=== PATIENT | female | born 1955 | race Two or more races ===

== ENCOUNTER 2023-12-05 15:40 | Inpatient (IN) | payer OTHER ==
[~2023-12-05] VITALS: Ht 160 cm; Wt 56.7 kg
[2023-12-05] MEDS ORDERED: AMBIEN5 MG PO (15:47)
[2023-12-05] MEDS ORDERED: AVAPRO75 MG PO (15:47)
[2023-12-05] MEDS ORDERED: SIMVASTATIN5 MG (15:47)
--- NOTE | 2023-12-05 15:49 | NUR ---
PTE ALERTA Y ORIENTADA X3, REFIERE PADECER DE "ADHERENCIAS" Y HACE 2 ANOS FUE OPERADA DEBIDO A ESO. EN EL RODOLFO DE HOY REFIERE DOLOR ABDOMINAL Y QUE SE ESTA INTENSTIFICANDO AL LADO IZQ. REFIERE QUE ALVES ZEB. ES RICCO TENORIO Y QUE LE DIJO QUE CUANDO EL DOLOR FUERA ALAN ACUDIERA A ER. SE SANA SV Y SE UBICA
[2023-12-05] MEDS ORDERED: HYOSCYAMINE SULFATE 0.125 MG TAB.SUBL PO ONE (16:30)
[2023-12-05] MEDS ORDERED: 0.9 % SODIUM CHLORIDE 1,000 ML IV SCH ×2 (16:30→22:00)
[2023-12-05 17:03] LABS: HEMATOCRIT 42.9 % (36.0-45.00); HEMOGLOBIN 14.3 g/dL (12.0-15.00); MEAN CORPUSCULAR HEMOGLOBIN 31.3 pg (27.00-32.0); MEAN CORPUSCULAR HGB CONC 33.3 g/dl (32.0-36.0); PLATELET COUNT 177 K/uL (150-450); RED BLOOD COUNT 4.56 M/uL (4.00-6.00); RED CELL DISTRIBUTION WIDTH 13.7 % (11.5-14.5)
--- NOTE | 2023-12-05 17:06 | NUR ---
SE ORIENTA PTE SOBRE XT A SEGUIR, LA MISMA REFIERE ENTENDER. SE NERIS MUESTRA DE LAB, SE CANALIZA Y SE ADMINISTRA MED RAJAN ORDEN MEDICA
[2023-12-05 17:28] LABS: ALBUMIN 4.5 gm/dL (3.4-5.0); BILIRUBIN TOTAL 1.72 mg/dL (0.3-1.2); CALCIUM 10.7 mg/dL (8.5-10.1); GFR 55.3; GLOBULINA 3.9 G/DL (2.4-3.5); POTASSIUM 3.6 mEq/L (3.5-5.1); TOTAL PROTEIN 8.4 gm/dL (6.4-8.2)
[2023-12-05 17:42] LABS: URINE APPEARANCE Clear; URINE BILIRRUBIN Negative (NEGATIVE); URINE BLOOD Negative; URINE COLOR Dark Yellow; URINE GLUCOSE Negative (NEGATIVE); URINE LEUKOCYTE Negative; URINE NITRATE Negative; URINE PROTEIN Trace (NEGATIVE)
[2023-12-05 17:46] LABS: URINE BACTERIA 76.8 uL (0.0-1933); URINE EPITHELIAL CELLS 8.1 uL (0.0-38.8); URINE RBC 15.5 uL (0.0-20.8); URINE WBC 12.9 uL (0.0-23.2)
[2023-12-05 17:57] LABS: URINE KETONE 40 (NEGATIVE)
[2023-12-05] MEDS ORDERED: ONDANSETRON HCL 4 MG in 0.9 % SODIUM CHLORIDE 50 ML IV PRN (22:00)
[2023-12-05] MEDS ORDERED: ACETAMINOPHEN 500 MG GEL..CAP PO PRN (22:00)
[2023-12-05] MEDS ORDERED: MEPERIDINE HCL/PF 25 MG/ML VIAL IM PRN (22:15)
[2023-12-05] MEDS ORDERED: KETOROLAC TROMETHAMINE 15 MG VIAL IU ONE (22:15)
[2023-12-05 23:03] VITALS: BP 145/74; O2SAT 100
[2023-12-05 23:59] LABS: PARTIAL THROMBOPLASTIN TIME 27.8 SECONDS (22.0-34.0); PROTHROMBIN TIME 10.9 SECONDS (9.0-11.5)
[2023-12-06] LABS: MAGNESIUM 2.3 mg/dL (1.8-2.4)
[2023-12-06] MEDS ORDERED: PIPERACILLIN/TAZOBACTAM SODIUM 3.375 GM in DEXTROSE 5 % IN WATER 100 ML IV SCH
[2023-12-06 00:20] LABS: C-REACTIVE PROTEIN 0.69 MG/DL (0.00-0.29)
[2023-12-06 03:50] VITALS: BP 142/68; O2SAT 98
[2023-12-06 08:00] VITALS: BP 146/63; O2SAT 100
[2023-12-06] MEDS ORDERED: IRBESARTAN 75 MG TABLET PO SCH (09:00)
[2023-12-06] MEDS ORDERED: FAMOTIDINE/PF 20 MG in 0.9 % SODIUM CHLORIDE 8 ML IV PUSH SCH (09:00)
[2023-12-06] MEDS ORDERED: ENOXAPARIN SODIUM 40 MG/0.4 ML SYRINGE SUBCUTANEO SCH (09:00)
[2023-12-06 16:48] VITALS: BP 132/63; O2SAT 97
[2023-12-06] MEDS ORDERED: ZOLPIDEM TARTRATE 5 MG TABLET PO SCH (21:00)
[2023-12-07] VITALS: BP 108/57; O2SAT 98
[2023-12-07 09:00] VITALS: BP 121/59; O2SAT 99
[2023-12-07 09:27] LABS: HEMATOCRIT 36.6 % (36.0-45.00); HEMOGLOBIN 12.4 g/dL (12.0-15.00); MEAN CELL VOLUME 95.2 fL (80.00-100.00); MEAN CORPUSCULAR HEMOGLOBIN 32.2 pg (27.00-32.0); MEAN CORPUSCULAR HGB CONC 33.8 g/dl (32.0-36.0); RED BLOOD COUNT 3.85 M/uL (4.00-6.00); RED CELL DISTRIBUTION WIDTH 13.4 % (11.5-14.5)
[2023-12-07 09:47] LABS: ALBUMIN 3.2 gm/dL (3.4-5.0); BILIRUBIN TOTAL 2.84 mg/dL (0.3-1.2); CALCIUM 8.1 mg/dL (8.5-10.1); CREATININE SERUM 0.68 mg/dL (0.55-1.02); GFR 86.3; GLOBULINA 2.7 G/DL (2.4-3.5); POTASSIUM 4.15 mEq/L (3.5-5.1); TOTAL PROTEIN 5.9 gm/dL (6.4-8.2)
[2023-12-07 09:58] LABS: PLATELET COUNT 112 K/uL (150-450)
[2023-12-07 17:01] VITALS: BP 132/66; O2SAT 96
[2023-12-08 01:02] VITALS: BP 118/60; O2SAT 96
[2023-12-08 09:32] VITALS: BP 133/69; O2SAT 99
[2023-12-08 15:30] VITALS: BP 134/66; O2SAT 95
[2023-12-08] MEDS ORDERED: PHENOL 177 ML BOTTLE MM ONE (18:00)
[2023-12-09] VITALS: BP 132/60; O2SAT 98
[2023-12-09 10:07] VITALS: BP 155/67; O2SAT 100
== END 2023-12-09 11:39 | disposition home or self-care (01) | DRG 390 ==
LOC: ER 15:42 → SURH 22:52
PROVIDERS: General Practice; Internal Medicine; ADMIT Internal Medicine; ATTEND Internal Medicine
PROC: BW21YZZ Computerized Tomography (CT Scan) of Abdomen and Pelvis using Other Contrast (ICD-10-PCS; principal; 2023-12-05)
DX: K56.600 Partial intestinal obstruction, unspecified as to cause (principal); K52.9 Noninfective gastroenteritis and colitis, unspecified; I10 Essential (primary) hypertension; E78.5 Hyperlipidemia, unspecified